=== PATIENT | female | born 1995 | race Caucasian/White ===

== ENCOUNTER 2018-07-17 19:59 | Emergency (ER) | payer MEDICAID ==
[~2018-07-17] VITALS: Ht 175.3 cm; Wt 113.4 kg
[2018-07-17 20:20] VITALS: BP_SYST 125
[2018-07-17] MEDS ORDERED: NACL 0.9% 1,000 ML IV ONE (22:00)
[2018-07-17] MEDS ORDERED: ONDANSETRON HCL 4 MG/2 ML VIAL IVP ONE (22:00)
[2018-07-17] MEDS ORDERED: KETOROLAC TROMETHAMINE 30 MG VIAL IVP ONE (22:00)
[2018-07-17 22:07] LABS: HCG,QUAL RESULT NEGATIVE (NEGATIVE)
[2018-07-17] MEDS ORDERED: PANTOPRAZOLE SODIUM 40 MG/VIAL (PROTONIX) IVP ONE (22:30)
[2018-07-17 22:47] LABS: CALCIUM 9.1 mg/dL (8.4-11.0); CREATININE 0.69 mg/dL (0.55-1.30); HEMATOCRIT 41.2 % (36-48); HEMOGLOBIN 13.7 g/dL (12.0-16.0); MEAN CORPUSCULAR HEMOGLOBIN 29 pg (27-31); MEAN CORPUSCULAR VOLUME 86 fL (79.0-98.0); RED BLOOD CELL COUNT(AUTO) 4.79 MIL/uL (4.2-6.2); WHITE BLOOD COUNT (AUTO) 9.6 K/uL (4.8-10.8)
[2018-07-17 22:48] LABS: BASOPHILS % (AUTO) 0.4 % (0.0-2.0); EOSINOPHILS # (AUTO) 0.2 K/uL (0.0-0.4); EOSINOPHILS % (AUTO) 1.8 % (0.0-4.0); LYMPHOCYTES # (AUTO) 3.9 K/uL (1.0-5.5); LYMPHOCYTES % (AUTO) 40.5 % (20.5-51.5); MEAN CORPUSCULAR HGB CONC 33 % (32-36); MONOCYTES # (AUTO) 0.7 K/uL (0.0-1.0); NEUTROPHILS # (AUTO) 4.8 K/uL (1.8-7.7); NEUTROPHILS % (AUTO) 50.3 % (40.0-70.0); PLATELET COUNT (AUTO) 311 K/uL (130-430); RED CELL DISTRIBUTION WIDTH 14.1 % (9.0-15.0)
[2018-07-17 22:53] LABS: ALBUMIN 3.4 g/dL (3.4-4.8); TOTAL BILIRUBIN 0.3 mg/dL (0.0-1.0)
[2018-07-17 23:33] LABS: BILIRUBIN,URINE NEGATIVE (NEGATIVE); BLOOD, URINE NEGATIVE (NEGATIVE); CLARITY/URINE CLEAR (CLEAR); COLOR,URINE YELLOW (YELLOW); GLUCOSE,URINE NEGATIVE (NEGATIVE); KETONES,URINE NEGATIVE (NEGATIVE); LEUKOCYTE ESTERASE ,URINE NEGATIVE (NEGATIVE); NITRITE, URINE NEGATIVE (NEGATIVE); PROTEIN URINE NEGATIVE (NEGATIVE); UROBILINOGEN,URINE 0.2 (0.2-1.0)
[2018-07-18 00:45] VITALS: BP_SYST 125
== END 2018-07-18 00:45 | disposition home or self-care (01) ==
LOC: SED 19:59
DX: K52.9 Noninfective gastroenteritis and colitis, unspecified (principal); G43.909 Migraine, unspecified, not intractable, without status migrainosus; R11.2 Nausea with vomiting, unspecified; Z91.048 Other nonmedicinal substance allergy status
CPT/HCPCS: 36415; 74021; 80053; 81003; 81025; 83690; 84703; 85025; 96361; 96374; 96375; 99284; C9113; J1885; J2405; J7030

== ENCOUNTER 2018-08-18 21:50 | Emergency (ER) | payer MEDICAID ==
[~2018-08-18] VITALS: Ht 175.3 cm; Wt 123.8 kg
[2018-08-18 22:20] VITALS: BP_SYST 147
[2018-08-19] MEDS ORDERED: NACL 0.9% 1,000 ML IV ONE (00:48)
[2018-08-19] MEDS ORDERED: CLOTRIMAZOLE 1% TOPICAL CREAM 15 GM TP ONE (01:00)
[2018-08-19] MEDS ORDERED: MORPHINE 4 MG/ML INJ. SYRINGE IVP ONE ×2 (01:00→02:30)
[2018-08-19] MEDS ORDERED: ONDANSETRON HCL 4 MG/2 ML VIAL IVP ONE (01:00)
[2018-08-19 01:28] LABS: BASOPHILS % (AUTO) 0.4 % (0.0-2.0); EOSINOPHILS # (AUTO) 0.3 K/uL (0.0-0.4); EOSINOPHILS % (AUTO) 3.7 % (0.0-4.0); HEMATOCRIT 41.5 % (36-48); HEMOGLOBIN 13.9 g/dL (12.0-16.0); LYMPHOCYTES # (AUTO) 3.5 K/uL (1.0-5.5); LYMPHOCYTES % (AUTO) 42.9 % (20.5-51.5); MEAN CORPUSCULAR HEMOGLOBIN 29 pg (27-31); MEAN CORPUSCULAR HGB CONC 34 % (32-36); MEAN CORPUSCULAR VOLUME 86 fL (79.0-98.0); MONOCYTES # (AUTO) 0.5 K/uL (0.0-1.0); MONOCYTES % (AUTO) 6.7 % (1.7-9.3); NEUTROPHILS # (AUTO) 3.7 K/uL (1.8-7.7); NEUTROPHILS % (AUTO) 46.3 % (40.0-70.0); PLATELET COUNT (AUTO) 262 K/uL (130-430); RED BLOOD CELL COUNT(AUTO) 4.82 MIL/uL (4.2-6.2); RED CELL DISTRIBUTION WIDTH 14.2 % (9.0-15.0); WHITE BLOOD COUNT (AUTO) 8.1 K/uL (4.8-10.8)
[2018-08-19] MEDS ORDERED: ONDANSETRON 4 MG ODT TAB PO ONE (01:30)
[2018-08-19] MEDS ORDERED: ACETAMINOPHEN 500 MG TABLET PO ONE (01:30)
[2018-08-19 01:39] LABS: CALCIUM 9.1 mg/dL (8.4-11.0); CREATININE 0.87 mg/dL (0.55-1.30); POTASSIUM 3.7 mmol/L (3.5-5.1)
[2018-08-19 01:43] LABS: PROTHROMBIN TIME 10.4 SECS (9.5-12.5)
[2018-08-19 01:46] LABS: ALBUMIN 3.6 g/dL (3.4-4.8); TOTAL BILIRUBIN 0.4 mg/dL (0.0-1.0)
[2018-08-19 02:04] LABS: BILIRUBIN,URINE NEGATIVE (NEGATIVE); BLOOD, URINE NEGATIVE (NEGATIVE); CLARITY/URINE SL HAZY (CLEAR); COLOR,URINE YELLOW (YELLOW); GLUCOSE,URINE NEGATIVE (NEGATIVE); KETONES,URINE NEGATIVE (NEGATIVE); LEUKOCYTE ESTERASE ,URINE NEGATIVE (NEGATIVE); NITRITE, URINE NEGATIVE (NEGATIVE); PH,URINE 6.5 (5.0-8.0); PROTEIN URINE NEGATIVE (NEGATIVE); UROBILINOGEN,URINE 0.2 (0.2-1.0)
[2018-08-19 03:00] VITALS: BP_SYST 138
== END 2018-08-19 03:00 | disposition home or self-care (01) ==
LOC: SED 21:50
DX: G43.909 Migraine, unspecified, not intractable, without status migrainosus (principal); B37.9 Candidiasis, unspecified; Z90.49 Acquired absence of other specified parts of digestive tract; Z91.048 Other nonmedicinal substance allergy status
CPT/HCPCS: 36415; 80053; 81003; 81025; 82150; 83690; 85025; 85610; 99284; J2270; Q0162

== ENCOUNTER 2018-12-18 00:22 | Emergency (ER) | payer MEDICAID ==
[~2018-12-18] VITALS: Ht 175.3 cm; Wt 106.6 kg
[2018-12-18 00:40] VITALS: BP_SYST 122
--- NOTE | 2018-12-18 01:27 | NUR ---
Pt ambulatory to bed 4 for evaluation
--- NOTE | 2018-12-18 01:30 | NUR ---
Patient AOx4, ambulatory, presents to ER with complaint of left axilla wounds x 3 weeks. Patient states she continues to shave axilla regularly. No other symptoms or complaints. No report of fever or chills.
--- NOTE | 2018-12-18 01:32 | NUR ---
ER MD Kelly at bedside for medical evaluation.
[2018-12-18] MEDS ORDERED: SULFAMETHOXAZOLE/TRIMETHOPR DS 1 TABLET PO ONE (01:45)
[2018-12-18] MEDS ORDERED: CEPHALEXIN 500 MG CAPSULE PO ONE (01:45)
--- NOTE | 2018-12-18 02:01 | NUR ---
No adverse reactions noted after medication administration. Will continue to monitor.
[2018-12-18 02:02] VITALS: BP_SYST 122
--- NOTE | 2018-12-18 02:02 | NUR ---
Patient given written and verbal discharge instructions and verbalizes understanding. ER MD discussed with patient the results and treatment provided. Patient in stable condition. ID arm band removed. Rx of Keflex and Bactrim DS given. Patient educated on pain management and to follow up with PMD. Pain Scale 2/10 tolerable to patient. Opportunity for questions provided and answered. Medication side effect fact sheet provided.
== END 2018-12-18 02:02 | disposition home or self-care (01) ==
LOC: SED 00:22
DX: L73.9 Follicular disorder, unspecified (principal); Z88.8 Allergy status to other drugs, medicaments and biological substances
CPT/HCPCS: 99283

== ENCOUNTER 2020-04-22 09:17 | Emergency (ER) | payer MEDICAID ==
[~2020-04-22] VITALS: Ht 167.6 cm; Wt 124.7 kg
[2020-04-22 09:26] VITALS: BP_SYST 144
--- NOTE | 2020-04-22 09:30 | NUR ---
Patient triaged and placed in waiting room. VSS and patient appears in no acute distress at this time. Accompanied by self , awaiting available bed, and MD notified of need for MSE.
--- NOTE | 2020-04-22 09:32 | NUR ---
Pt brought by self, A&Ox4, pt presents to ER with L ankle pain/ swelling after walking fast, states she heard a snap, skin pink and warm,cap refill <3, VSS, respirations even and unlabored.
--- NOTE | 2020-04-22 09:40 | NUR ---
Dr Christiansen evaluating patient in the tent
--- NOTE | 2020-04-22 10:10 | NUR ---
Crutches and airsplint given to patient, well tolerated
[2020-04-22 10:23] VITALS: BP_SYST 144
--- NOTE | 2020-04-22 10:23 | NUR ---
Patient given written and verbal discharge instructions and verbalizes understanding. ER MD discussed with patient the results and treatment provided. Patient in stable condition. ID arm band removed. Rx of [place] and Naproxen given. Patient educated on pain management and to follow up with PMD. Pain Scale 3/10 tolerable for pt. Opportunity for questions provided and answered. Medication side effect fact sheet provided.
== END 2020-04-22 10:23 | disposition home or self-care (01) ==
LOC: SED 09:17
DX: N94.6 Dysmenorrhea, unspecified (principal)
CPT/HCPCS: 81025; 99283; J7030

== ENCOUNTER 2021-02-20 01:38 | Emergency (ER) | payer SELFPAY ==
[~2021-02-20] VITALS: Ht 175.3 cm; Wt 113.4 kg
[2021-02-20 02:36] VITALS: BP_SYST 157
[2021-02-20] MEDS ORDERED: MORPHINE 4 MG INJ. 4 MG/ML VIAL IM ONE (04:00)
[2021-02-20] MEDS ORDERED: HYDR-3917 PO (04:02)
[2021-02-20] MEDS ORDERED: CORTEARS RIGHT EAR (04:02)
[2021-02-20] MEDS ORDERED: IBUP-1969 PO (04:02)
[2021-02-20 04:44] VITALS: BP_SYST 144
== END 2021-02-20 04:44 | disposition home or self-care (01) ==
LOC: SED 01:38
DX: H60.501 Unspecified acute noninfective otitis externa, right ear (principal); J32.9 Chronic sinusitis, unspecified; Z79.899 Other long term (current) drug therapy
CPT/HCPCS: 96372; 99283; J2270